=== PATIENT | male | born 1990 | race American Indian/Alaskan Native ===

== ENCOUNTER 2021-07-07 16:55 | Emergency (ER) | payer SELFPAY ==
[2021-07-07 18:54] VITALS: BP 121/76
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
== END 2021-07-08 05:26 | disposition home or self-care (01) ==
LOC: ED 16:55
DX: M54.50 Low back pain, unspecified (principal); V89.2XXA Person injured in unspecified motor-vehicle accident, traffic, initial encounter; Y93.89 Activity, other specified; Y92.89 Other specified places as the place of occurrence of the external cause; Y99.8 Other external cause status
CPT/HCPCS: 71046; 72100; 99283